=== PATIENT | female | born 1975 | race Caucasian/White ===

== ENCOUNTER 2019-12-25 10:35 | Emergency (ER) | payer SELFPAY ==
[2019-12-25 10:35] VITALS: BP 149/101; PULSE 84; RESP 16; TEMP 36.9; O2SAT 98; BMI 27.4
--- NOTE | 2019-12-25 11:21 | ED.VIS.DENTA ---
History of Present Illness Chief Complaint: Dental Informant: Patient Onset: Days Context: Gradual Onset Timing: Continuous Associated Symptoms: Facial Swellling Narrative: Patient is a 44-year-old female who denies any past medical history presenting with left-sided facial swelling and dental pain. Patient states she has pain on her bottom left tooth. She wears dentures for her uppers. She states she has had this worsening swelling of her face for the past few days. She is try to call a dentist but not been able to get an the timely fashion. She is concerned she has an infection so she came to the emergency room. She is been taking ibuprofen at home with acceptable pain control. She states she has a little bit of paresthesia now where her face is swollen. She denies any other complaints at this time. Denies any difficulty swallowing or opening her mouth. Past Medical History - Allergies and Home Meds Allergies/Adverse Reactions: Allergies No Known Allergies Allergy (Verified 12/25/19 10:37) Past Medical History: None Surgical History: appendectomy Smoking Status: Never smoker Review of Systems General: Denies: Chills, Fever, Sweats Eyes: Denies: Visual changes - bilaterally, Diplopia ENT: Reports: - - left dental pain, face swelling . Denies: Rhinorrhea, Sore throat Cardiovascular: Denies: Chest pain, Palpitations Respiratory: Denies: Dyspnea, Cough Gastrointestinal: Denies: Abdominal pain, Nausea, Vomiting, Diarrhea Musculoskeletal: Denies: Back pain, Extremity Pain Skin: Denies: Rash, Wounds Neurological: Denies: Headache, Weakness, Numbness Physical Exam Vital Signs/Narrative: Vital Signs Temp Pulse Resp BP Pulse Ox 12/25/19 10:35 98.4 F 84 16 149/101 H 98 Inital Vital Signs reviewed: Yes General: Well nourished, Well developed Head: Normocephalic, Atraumatic ENT: Moist mucous membranes, No rhinorrhea, TM's clear Mouth/Throat: Normal inspection lips/gums, Normal oral mucosa, No focal abscess, No sublingual edema, Dentral fracture - Left lower premolar, associated tenderness, tooth is not loose, Widespread dental decay, - - Edentulous maxilla. Negative for: Trismus Neck: Supple, No lymphadenopathy, Nontender, No JVD Cardiovascular: Regular rate, Regular rhythm, No murmurs Respiratory: No distress, CTA bilaterally, Chest nontender Abdomen: Soft, Nontender Back: Nontender, Normal Inspection Extremities: Nontender, No edema Skin: Normal color, No rash Neurological: Alert, Oriented x3, Cranial nerves II-XII grossly intact Psychological: Normal affect Diagnostic/Tx/Re-eval - Medical Decision Making Patient is evaluated for left-sided facial swelling associated with dental pain. She does not have any obvious abscess. She not have any trismus or airway compromise. No signs of Jacky angina. She will be started empirically on penicillin. She is given a dental referral sheet. She is already taking ibuprofen at home for pain control. Patient is counseled on signs and symptoms requiring return to the emergency room. Patient verbalizes agreement and understand this plan. Patient discharged home in stable and improved condition. ED Disposition - Plan for ED Patient: Disposition: Home or Assisted Living Diagnosis: Left facial swelling, Dentalgia Instructions: Dental Pain Prescriptions: Penicillin V Potassium 500 mg PO 4X/DAY #40 tab Prescription Printed Additional Instructions: Follow-up with a dentist as soon as you can. Return the emergency room with worsening symptoms such as difficulty breathing or swallowing. Continue to take 600 mg (3 [id number] ibuprofen) every 6-8 hours as needed for pain.
[2019-12-25] MEDS: Penicillin Vk 250 MG Tablet 500 MG PO (11:33)
[2019-12-25] MEDS: Acetaminophen 325 MG Tablet 650 MG PO (11:34)
[2019-12-25 11:35] VITALS: PULSE 85; RESP 17; O2SAT 99
== END 2019-12-25 11:36 | disposition home or self-care (01) ==
PROVIDERS: Emergency Provider Emergency Medicine
DX: K08.89 Other specified disorders of teeth and supporting structures (principal); R22.0 Localized swelling, mass and lump, head; K02.9 Dental caries, unspecified
CPT/HCPCS: 99283

== ENCOUNTER 2020-05-10 09:43 | Emergency (ER) | payer SELFPAY ==
[2020-05-10 09:44] VITALS: BP 137/75; PULSE 84; RESP 16; TEMP 36.3; O2SAT 97; BMI 33.3
[2020-05-10 09:47] VITALS: BP 137/75; PULSE 84; RESP 16; TEMP 36.3; O2SAT 97
[2020-05-10] MEDS: Fluorescein 1 MG STRIP 1 STRIP OPHTHALMIC (09:56)
[2020-05-10] MEDS: Tetracaine 0.5% Ophthalmic Bottle OPHTHALMIC (09:57)
--- NOTE | 2020-05-10 10:07 | ED.VISSUMM ---
- ER Visit Summary Date of Service: 05/10/20 Chief Complaint: Left eye redness History of Present Illness: The patient is a 45 F with no primary care physician. She reports that she has redness to her left eye that began 2 days ago. She complains of a burning sensation. She reports that her eye has been matted shut in the morning. She has photophobia with the sun only. She denies any change in her vision. She does not wear glasses or contacts. She denies any possible injury. She is not been grinding or welding. She is not been on t[place]. Review of systems: General: No fever, chills, cold sweats. Cardiovascular: No chest pain, palpitations. Respiratory: No cough, shortness of breath, dyspnea on exertion. Gastrointestinal: No abdominal pain, nausea, vomiting, diarrhea, melena, or hematochezia. Genitourinary: No dysuria, frequency, hematuria. Skin: No rash. Neuro: No headache, numbness, weakness. Physical Examination: Vitals: Stable. Afebrile. General: Well-nourished and well-developed. Head: Normocephalic atraumatic. Left eye: Upper eyelid is swollen. There is minimal erythema. There is no evidence of a preseptal cellulitis. The upper eyelid was everted. There is no foreign material under it. She has diffuse conjunctival injection with ciliary flush and chemosis. There is no exudate at this time. There is no fluorescein dye uptake. There is no foreign body in her eye. Neck: Supple, no lymphadenopathy. No JVD. Nontender. Cardiovascular: Regular rate and rhythm. No murmurs. Respiratory: No respiratory distress. Clear to auscultation bilaterally. Abdominal: Soft, nontender, nondistended, normal bowel sounds. No guarding, rebound, or peritoneal signs. Back: Nontender. Extremities: Nontender, no edema. Skin: Normal color, no rash. Neurologic: Alert and oriented ?3. Cranial nerves II through XII are intact. Normal strength and sensation. Psych: Normal affect. Emergency Department Course and Treatment: Patient had erythromycin ointment placed. Treatment Plan: Patient will be discharged on erythromycin ointment instructed to use this 4 times a day. Follow-up with Dr. Moran in 3 to 5 days for another exam. Return to the emergency department for any worsening symptoms. Disposition: To home in improved and stable condition. Impression: 1. Conjunctivitis on left. This note was generated with [employer] dictation software. It may contain incorrect words, spelling, and punctuation that were not noted in review of the chart prior to signing ED Disposition - Plan for ED Patient: Instructions: ED Conjunctivitis Nonspecific Referrals: Brisa Moran MD [STAFF PHYSICIAN] - 3-5 Days
== END 2020-05-10 10:31 | disposition home or self-care (01) ==
LOC: ED 10:23
PROVIDERS: Emergency Provider Emergency Medicine
DX: H10.9 Unspecified conjunctivitis (principal)
CPT/HCPCS: 99283